=== PATIENT | male | born 1970 | race Caucasian/White ===

== ENCOUNTER → 2020-09-01 12:17 | Outpatient (CLI) | payer OTHER, SELFPAY ==
--- NOTE | ~2020-09-01 | US_ITS ---
EXAMINATION: US scrotum doppler EXAM DATE: 09/01/2020 13:03 INDICATION: Abnormal level of hormones in specimens for male genital org. TECHNIQUE: Multiple grayscale and Doppler images of the testicles and scrotum were obtained bilateral ly. There is no prior study for comparison. FINDINGS: Right testicle measures 4.3 x 2.0 x 3.2 cm and is morphologically normal. Low resistance Doppler te w confirmed. The epididymis is unremarkable. There is no hydrocele or varicocele. Left testicle measures 4.1 x 2.1 x 2.7 cm and is morphologically normal. Low resistance Doppler flow confirmed. The epididymis is unremarkable. There is no hydrocele or varicocele. IMPRESSION: 1. Unremarkable testicular/scrotal ultrasound exam. Reviewed, dictated and finalized at location B. NHOUSE GROWER
--- NOTE | ~2020-09-01 | XR_ITS ---
EXAMINATION: XR chest 2V EXAM DATE: 09/01/2020 12:45 INDICATION: Smoker. TECHNIQUE: Frontal and lateral projections of the thoracic spine as well as lateral swimmers projecti on of the upper thoracic spine for interpretation. There is no prior study for comparison. FINDINGS: Moderate chronic appearing hyperinflation. Right midlung zone granuloma. The lungs are oth erwise clear. There are no pleural effusions. The cardiomediastinal silhouette is within normal diaz its. There is no pneumothorax suspected. The bones and soft tissues are unremarkable. IMPRESSION: 1. No acute cardiopulmonary findings. 2. Hyperinflation. Reviewed, dictated and finalized at location B. D AND ADOLESCENT THERAPIST
== END ==
DX: R86.1 Abnormal level of hormones in specimens from male genital organs (principal); F17.200 Nicotine dependence, unspecified, uncomplicated; D72.825 Bandemia; R91.8 Other nonspecific abnormal finding of lung field
CPT/HCPCS: 71046; 76870; 93976

== ENCOUNTER 2020-09-04 13:43 | Outpatient (CLI) | payer OTHER, SELFPAY | END 2020-09-04 13:44 | disposition home or self-care (01) | LOC: ANHCOVIDVC 13:43 | DX: Z23 Encounter for immunization (principal) | CPT/HCPCS: 0001A; 91300 ==

== ENCOUNTER → 2020-09-10 08:28 | Outpatient (CLI) | payer OTHER, SELFPAY ==
--- NOTE | ~2020-09-10 | US_ITS ---
EXAMINATION: US right upper quadrant DATE: 09/10/2020 08:48 INDICATION: Abnormal levels of hormones in specimens from male genital organs. TECHNIQUE: Multiple grayscale and Doppler ultrasound images of the abdomen were obtained. COMPARISON: None FINDINGS: Abdominal aorta and inferior vena cava are normal. The visualized portions of the head and body of the pancreas are normal. The liver is normal without focal lesion. No liver surface nodularit y. There is normal flow in main portal vein. The gallbladder is normal in size and contains sludge. N o gallstones or gallbladder wall thickening. There was no sonographic Spence sign. The common duct is normal and measures 4 mm. IMPRESSION: 1. Gallbladder sludge. No evidence of acute cholecystitis. Reviewed, dictated and finalized at location A.
== END ==
DX: R86.1 Abnormal level of hormones in specimens from male genital organs (principal); R53.82 Chronic fatigue, unspecified
CPT/HCPCS: 76705

== ENCOUNTER 2020-09-25 11:36 | Outpatient (CLI) | payer OTHER, SELFPAY | END 2020-09-25 11:37 | disposition home or self-care (01) | LOC: ANHCOVIDVC 11:36 | DX: Z23 Encounter for immunization (principal) | CPT/HCPCS: 0002A; 91300 ==

== ENCOUNTER 2021-06-25 13:44 | Emergency (ER) | payer OTHER, SELFPAY ==
[2021-06-25 14:50] VITALS: BP 121/76; PULSE 71; RESP 18; TEMP 37; O2SAT 100
--- NOTE | 2021-06-25 15:18 | ED.URI ---
HPI - URI/Sore Throat General Chief Complaint: Upper Respiratory Infection Stated Complaint: Cough,Congestion,Headache Time Seen by Provider: 06/25/21 15:18 Source: patient and RN notes reviewed Mode of arrival: ambulatory Limitations: no limitations History of Present Illness HPI Narrative: Bismark is a 51-year-old female patient who ambulated into the [facility]. Patient states he had a cough bilateral ear pain and raspy voice for 7 days. Patient has had his Covid vaccine. Patient tested negative for Covid on 06/20/21. Patient has been taking Mucinex at home. Patient had this last year was given albuterol.. Related Data Allergies Allergy/AdvReac Type Severity Reaction Status Date / Time No Known Allergies Allergy Unknown Unverified 01/31/14 17:42 Review of Systems Review of Systems: CONSTITUTIONAL: Denies body aches, fever, chills, or sweats. EYES: Denies visual changes, redness, or discharge. ENT: Denies rhinorrhea,+ congestion, sore throat, + bilateral otalgia. CARDIOVASCULAR: Denies chest pain, palpitations, or edema. RESPIRATORY: +cough denies dyspnea. GASTROINTESTINAL: Denies abdominal pain, nausea, vomiting, or diarrhea. GENITOURINARY: Denies dysuria or hematuria. SKIN: Denies rash, itching, or wounds. MUSCULOSKELETAL: Denies back pain, joint pain, or myalgia. NEUROLOGIC: Denies headache, numbness, tingling, or weakness. PSYCH: Denies depression or anxiety. All systems reviewed & are unremarkable except as noted in HPI and below PMFSH Comments At time of signature, I have reviewed and agree with nursing past medical, surgical, social and family history unless otherwise noted. Please see nursing chart for further information. There is no relevant family history pertinent to the presenting complaint Exam Narrative: GENERAL: Well-appearing, well-nourished, and in no acute distress. HEAD: Normocephalic, atraumatic. EYES: EOMI. No redness or drainage. Conjunctivae normal. ENT: Mucous membranes pink and moist. Nasal passages erythematous with clear rhinorrhea. Bilateral tympanic membranes are opaque with minimal bulging. Posterior pharynx is erythemic with mild postnasal drainage. l. Uvula midline. NECK: Normal AROM. Supple. No lymphadenopathy. CHEST: No respiratory distress. Clear to auscultation decreased in bases MUSCULOSKELETAL: No bony tenderness. EXTREMITIES: Normal range of motion. No edema. SKIN: Warm, dry, no rash. Capillary refill normal. Normal skin turgor. NEURO: No focal deficits. Alert and oriented x3. Gait steady. PSYCH: Normal affect. No signs of depression or anxiety. Course Vital Signs Vital signs: Vital Signs Temperature 37.0 C 06/25/21 14:50 Pulse Rate 71 06/25/21 14:50 Respiratory Rate 18 06/25/21 14:50 Blood Pressure 121/76 06/25/21 14:50 Pulse Oximetry 100 06/25/21 14:50 Temperature 37.0 C 06/25/21 14:50 Pulse Rate 71 06/25/21 14:50 Respiratory Rate 18 06/25/21 14:50 Blood Pressure 121/76 06/25/21 14:50 Pulse Oximetry 100 06/25/21 14:50 MDM - URI/Sore Throat MDM Narrative Medical decision making narrative: Patient has an upper respiratory infection. He will be treated with prednisone and refill on his albuterol inhaler. Patient to follow-up with his primary care physician in 7 to 10 days for continued symptoms or sooner if worse. Differential Diagnosis Differential diagnosis: Likely upper respiratory infection, otitis media, viral infection and influenza Medical Records Attestation: I reviewed the patient's medical records. Critical Care Time Critical Care Time Critical Care Time: No Discharge Plan Discharge Clinical Impression: Upper respiratory infection Qualifiers: URI type: unspecified viral URI Qualified Code(s): J06.9 - Acute upper respiratory infection, unspecified Patient Disposition: Home, Self-Care Condition: Stable Instructions: Antibiotic Form, Upper Respiratory Infection (ED) Additional Instructions
== END 2021-06-25 15:40 | disposition home or self-care (01) ==
PROVIDERS: Emergency Provider Nurse Practitioner Family
DX: J06.9 Acute upper respiratory infection, unspecified (principal); Z86.16 Personal history of COVID-19
CPT/HCPCS: 99213; G0463

== ENCOUNTER 2022-09-24 11:28 | Emergency (ER) | payer OTHER, SELFPAY ==
[2022-09-24 11:46] VITALS: BP 126/81; PULSE 89; RESP 18; TEMP 36.3; O2SAT 100
--- NOTE | 2022-09-24 11:51 | ED.GENADULT ---
HPI - General Adult General Chief complaint: Ear Stated complaint: lt ear discomfort Time Seen by Provider: 09/24/22 11:51 Source: patient Mode of arrival: ambulatory Limitations: no limitations History of Present Illness HPI narrative: 52-year-old male patient presents to the [facility] with complaints of decreased hearing to the right ear for the past week. Patient states he has tried putting some Debrox in to the ear which has not helped. Patient states he has had issues before in the past with having fluid behind his ears and has had to have his ears cleaned out before. Denies any fevers, body aches or chills. Patient states he does take Claritin daily. Related Data Home Medications Medication Instructions Recorded Confirmed No Home Medications 06/25/21 09/24/22 Allergies Allergy/AdvReac Type Severity Reaction Status Date / Time No Known Allergies Allergy Unknown Verified 09/24/22 11:49 Review of Systems Review of Systems: CONSTITUTIONAL: Denies fever, chills, or sweats. EYES: Denies visual changes, redness, or discharge. ENT: Denies rhinorrhea, congestion, sore throat, Positive right otalgia. CARDIOVASCULAR: Denies chest pain, palpitations, or edema. RESPIRATORY: Denies cough or dyspnea. GASTROINTESTINAL: Denies abdominal pain, nausea, vomiting, or diarrhea. GENITOURINARY: Denies dysuria or hematuria. SKIN: Denies rash or itching. MUSCULOSKELETAL: Denies back pain, joint pain, or myalgia. NEUROLOGIC: Denies headache, numbness, or weakness. PSYCHIATRIC: Denies anxiety or depression. [facility] Past Medical History Medical History (Updated 09/24/22 @ 12:43 by JOHN Luo) Cat allergies Seasonal allergies Comments At the time of my signature I agree with nursing past medical history, surgical, social, and family history. There is no relevant family history pertinent to the presenting complaint. Exam Narrative: GENERAL: Well-appearing, well-nourished, and in no acute distress. HEAD: Normocephalic, atraumatic. EYES: PERRLA and EOMI. ENT: Nares clear, no rhinorrhea or epistaxis. Mucous membranes moist. unable to visualize TM in bilateral ears due to cerumen impaction. NECK: Supple. No lymphadenopathy CHEST: Clear to auscultation. No respiratory distress. HEART: Regular rate and rhythm. No murmur heard. Normal peripheral pulses. ABDOMEN: Soft, nontender, nondistended, normal active bowel sounds. EXTREMITIES: Normal range of motion. No edema. SKIN: Warm, dry, no rash. NEURO: No focal deficits. Alert and oriented x3. Course Course Level of Care: Express Care Visit Vital Signs Vital signs: Vital Signs Temperature 36.3 C L 09/24/22 11:46 Pulse Rate 89 09/24/22 11:46 Respiratory Rate 18 09/24/22 11:46 Blood Pressure 126/81 09/24/22 11:46 Pulse Oximetry 100 09/24/22 11:46 Oxygen Delivery Room Air 09/24/22 11:46 Temperature 36.3 C L 09/24/22 11:46 Pulse Rate 89 09/24/22 11:46 Respiratory Rate 18 09/24/22 11:46 Blood Pressure 126/81 09/24/22 11:46 Pulse Oximetry 100 09/24/22 11:46 Oxygen Delivery Room Air 09/24/22 11:46 Vital signs reviewed. Procedures Ear Wax Removal Right Ear: Ear Wax Removal Date: 09/24/22 Ear Wax Removal Time: 12:41 Cerumenolytic Used: Cerumenex and 5-10% Sodium Bicarb solution Results: Re-examined: cerumen removed completely TM Examination: TM(s) intact, normal appearance Ear Canal Exam: atraumatic Patient Tolerated Procedure: well Complications: no problems Technique: ear canal irrigated Medical Decision Making MDM Narrative Medical decision making narrative: Plan care for patient is to use the elephant ear and Debrox to help disimpact the right ear since that is the 1 he is having issues with hearing. I will reassess him once this has resulted Differential Diagnosis Differential Diagnosis: Differential diagnosis: Otitis media, otitis externa, perforated
[2022-09-24] MEDS: CARBAMIDE PEROXIDE 6.5% OT SOLN 15 ML BTL 5 DROP RIGHT EAR (12:06)
== END 2022-09-24 12:46 | disposition home or self-care (01) ==
PROVIDERS: Emergency Provider Nurse Practitioner Family
DX: H61.21 Impacted cerumen, right ear (principal)
CPT/HCPCS: 69209; 99212; A9270; G0463

== ENCOUNTER 2023-05-03 08:28 | Emergency (ER) | payer OTHER, SELFPAY ==
--- NOTE | ~2023-05-03 | XR_ITS ---
EXAMINATION: XR hip RT min 2V DATE: 05/03/2023 09:03 INDICATION: Right hip pain after fall TECHNIQUE: Anteroposterior, frog leg, and cross-table lateral views of right hip were obtained. COMPARISON: None. FINDINGS: Bone alignment is normal. There is no fracture. The soft tissues are unremarkable. IMPRESSION: 1. No acute osseous abnormality. Reviewed, dictated and finalized at location B. R ASSOCIATE
--- NOTE | 2023-05-03 08:38 | ED.LOWEXIN ---
HPI - Extremity Injury (Lower) General Chief Complaint: Extremity Injury, Lower Stated Complaint: fall,rt lower extremity injury Time Seen by Provider: 05/03/23 08:39 Source: patient Mode of arrival: ambulatory Limitations: no limitations History of Present Illness HPI Narrative: Bismark is a 53-year-old male patient presenting to the clinic today with complaints of right hip pain after a fall. He reports over 1 week ago he stepped out of his truck and his foot got caught in the step and he fell back and landed on his back and elbows. He reports he is having pain to the right hip/groin area. States that the pain is worse with walking. Denies any other injury at this time. Rates pain 0 at rest and at times when he is walking it is 04/04 Related Data Home Medications Medication Instructions Recorded Confirmed No Home Medications 06/25/21 05/03/23 Allergies Allergy/AdvReac Type Severity Reaction Status Date / Time No Known Allergies Allergy Unknown Verified 09/24/22 11:49 Review of Systems Review of Systems: Pertinent positives per HPI. Patient denies any fever, chills, rash, headache, visual changes, dizziness, cough, runny nose, sore throat, shortness of breath, chest pain, palpitations, nausea, vomiting, diarrhea, constipation, abdominal pain, or any urinary issues. [facility] Past Medical History Medical History Cat allergies Seasonal allergies Comments At the time of my signature, I reviewed and agree with the nursing past medical, surgical, social, and family history. There is no relevant family history pertinent to the patient complaint. Exam Narrative: General: Well-developed, well nourished, in no apparent distress Head: Normocephalic, atraumatic. Cardio: Regular rate and rhythm, s1 and s2 normal, no murmur appreciated. Resp: Clear to auscultation bilaterally, no rhonchi, rales, wheezing or rubs. Musculoskeletal: No deformity, mild tender to palpation over the right groin musculature, no pain with internal rotation or external rotation of the right hip, no pain with hip flexion, nontender to palpation over the lateral hip, grossly normal range of motion, muscle strength strong and equal, peripheral pulse strong, no edema, no cyanosis, normal gait and station Course Course Emergency Course: Portions of this record may have been created with voice recognition software. Level of Care: Express Care Visit Vital Signs Vital signs: Vital signs reviewed MDM - Extremity Injury (Lower) MDM Narrative Medical decision making narrative: At the time of visit patient is resting comfortably on the exam table. Right hip x-ray was performed Differential Diagnosis Differential diagnosis: Likely other (Hip muscle strain, groin strain, contusion, hip fracture) Discharge Plan Discharge Clinical Impression: Strain of muscle of right groin region Patient Disposition: Home, Self-Care Condition: Stable Instructions: Antibiotic Form, Hip Pain (ED), Groin Strain (ED) Additional Instructions: X-ray of the right hip is negative for any sign of fracture or malalignment. I suspect patient has a right groin strain May take Tylenol/Motrin as needed for pain May apply heat or ice to the affected area Follow up with your PCP in 1 week if symptom persist. Prescriptions: No Action No Home Medications Follow-up/Referrals: PHYSICIAN,PARAOPTOMETRIC [Primary Care Provider] - Time of Disposition: 09:19 Quality NIHSS Nursing Documentation ED NIHSS nursing documentation: reviewed/agree
[2023-05-03 08:39] VITALS: BP 91/71; PULSE 107; RESP 16; TEMP 36.3; O2SAT 100
== END 2023-05-03 09:27 | disposition home or self-care (01) ==
PROVIDERS: Emergency Provider Nurse Practitioner Family
DX: S39.011A Strain of muscle, fascia and tendon of abdomen, initial encounter (principal); V48.4XXA Person boarding or alighting a car injured in noncollision transport accident, initial encounter
CPT/HCPCS: 73502; 99213; G0463

== ENCOUNTER 2024-12-14 14:27 | Emergency (ER) | payer OTHER, SELFPAY ==
--- NOTE | ~2024-12-14 | XR_ITS ---
XR finger 4th LT min 2V Ordering provider: Margarita Balderas APRN History: . hand tire trimmer versus finger, distal . Comparison: None. FINDINGS: BONES: Longitudinal fracture is seen in the distal phalanx of the left fourth finger with comminuted fracture in the tuft. JOINT SPACES: Normal. SOFT TISSUES: Soft tissue swelling over the tuft of the distal phalanx. IMPRESSION: Longitudinal fracture with comminuted fracture in the tuft of the distal phalanx of the left fourth f bonnie. Reviewed, dictated and finalized at location A. IMPRESSION: Longitudinal fracture with comminuted fracture in the tuft of the distal phalan x of the left fourth finger.
--- NOTE | 2024-12-14 14:30 | ED.UPPEXIN ---
HPI - Extremity Injury (Upper) General Chief Complaint: Extremity Injury, Upper Stated Complaint: finger injury Time Seen by Provider: 12/14/24 14:35 Source: patient, RN notes reviewed and old records reviewed Mode of arrival: ambulatory Limitations: no limitations History of Present Illness HPI narrative: 54-year-old male presents to the [facility] with multiple lacerations to the distal aspect 4th finger left hand. Bleedings controlled. 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 hand Unknown last Tdap Related Data Allergies Allergy/AdvReac Type Severity Reaction Status Date / Time No Known Allergies Allergy Unknown Verified 12/14/24 14:36 Review of Systems Review of Systems: All systems reviewed & are unremarkable except as noted in HPI and below Constitutional: Constitutional: Reports no additional constitutional complaints Musculoskeletal: Musculoskeletal: Reports as per HPI Integumentary/Breasts: Skin/Breast: Reports as per HPI PMFSH Past Medical History Medical History Seasonal allergies Cat allergies Comments At the time of my signature, I reviewed and agree with the nursing past medical, surgical, social, and family history. There is no relevant family history pertinent to the patient complaint. Exam Const: General: cooperative, healthy appearing, comfortable, no acute distress, well developed, alert and well nourished Nutritional Appearance: well nourished Orientation/consciousness: patient oriented x3 Limitations: no limitations HENMT: Head: normal to inspection Eyes: General: appearance normal, both eyes and all related structures Alignment and Position: alignment normal Neck: Neck: normal visual inspection, full ROM, no lymphadenopathy and no meningeal signs Chest: Chest palpation & inspection: normal inspection of the chest Resp: Effort & Inspection: normal respiratory effort and able to speak in complete sentences Cardio: Rate: regular rate Skin: General skin exam: normal color and no rashes or lesions noted Wounds: wounds noted laceration left distal 4th finger margins poorly approximated and open Neuro: General: patient oriented x3, gait normal, moves all extremities and no meningeal signs Cognition (Neuro): normal cognition Speech: normal speech Gait exam (Neuro): Normal gait present Extrem: General: normal to inspection, full ROM, capillary refill normal and normal gait Left upper extremity: full ROM, normal capillary refill and hand normal capillary refill, neuromotor exam normal Details: wrist extension normal, thumb opposition normal, thumb IP flexion normal, thumb ADduction normal and fingers 2-5 ABduction normal, vascular exam radial pulse present and normal capillary refill and laceration Other: Three parallel lacerations approximately 1/2 cm in length, 0.5 cm apart. One laceration was a well-approximated. Other to partial avulsion to the palmar aspect Psych: Appearance: grossly normal and well kempt Mental Status: mental status grossly normal Speech and movement: Normal speech and movement present and Clear speech present Affect: normal affect Attitude: cooperative Course Course Level of Care: Express Care Visit Vital Signs Vital signs: Vital Signs Temperature 97.7 F 12/14/24 14:35 Pulse Rate 98 12/14/24 14:35 Respiratory Rate 18 12/14/24 14:35 Blood Pressure 133/78 12/14/24 14:35 Pulse Oximetry 98 12/14/24 14:35 Oxygen Delivery Room Air 12/14/24 14:35 Temperature 97.7 F 12/14/24 14:35 Pulse Rate 98 12/14/24 14:35 Respiratory Rate 18 12/14/24 14:35 Blood Pressure 133/78 12/14/24 14:35 Pulse Oximetry 98 12/14/24 14:35 Oxygen Delivery Room Air 12/14/24 14:35 Reviewed Procedures Laceration Laceration 1: Date: 12/14/24 Time: 15:15 Site: hand (4th finger distal) Side (If applicable): left Description: irregular Depth: simple, single layer Local Anesthetic: lidocaine 1% Amount of anesthesia used (mL): 4 Pre-repair: wound explored and irrigated (500) ====== Skin Level ====== Skin layer closed with: nylon Size (cm): 4-0 Number of sutures: 8 Technique: simple, interrupted ====== Subcutaneous Layer ====== ====== Muscle Layer ====== ====== Tendon Layer ====== Dressing: Area so it with saline and Betadine for approximately 15 minutes. Procedure explained, verbal consent obtained. Base of finger cleaned with Betadine, digital block performed, anesthesia achieved. Wounds flushed with 500 mils of saline. Eight sutures placed to approximate wounds, area left open due to avulsion of skin. MDM - Extremity Injury (Upper) MDM Narrative Medical decision making narrative: Patient presents with multiple lacerations to the tip of the finger, injury from a zipper trimmer hand X-ray shows fracture, covering with antibiotic Wound irrigated well, no contamination noted. Placed sutures for approximation of the wounds, area was left open due to avulsion Of skin patient referred to Dr. Aguilar for further evaluation. Discharge instructions reviewed with patient, as well as provided in writing per nursing staff. The instructions also include specific and strict return/GO TO THE ER as well as f/u information. All questions have been answered, and the patient deny any further questions with discharge and discharge plan. Some parts of this dictation were generated by voice recognition software and may contain typographical and/or grammatical inaccuracies. Differential Diagnosis Differential diagnosis: Likely other (Fracture, laceration) Imaging Data Radiologist's impression: XR finger 4th LT min 2V Ordering provider: Margarita Balderas APRN History: . die trimmer versus finger, distal . Comparison: None. FINDINGS: BONES: Longitudinal fracture is seen in the distal phalanx of the left fourth finger with comminuted fracture in the tuft. JOINT SPACES: Normal. SOFT TISSUES: Soft tissue swelling over the tuft of the distal phalanx. IMPRESSION: Longitudinal fracture with comminuted fracture in the tuft of the distal phalanx of the left fourth finger. Critical Care Time Critical Care Time Critical Care Time: No Discharge Plan Discharge Clinical Impression: Open fracture of tuft of distal phalanx of finger, Vaccine for [id number], combined, Avulsion of skin of finger Patient Disposition: Home Condition: Stable Instructions: Antibiotic Form, Finger Fracture (ED), Finger Laceration (ED) Additional Instructions: Keep area clean and dry. Change dressing 2-3 times per day. Call Dr. Aguilar's office on Monday morning for a follow-up appointment wear the splint until cleared by Dr. Aguilar. May remove to change the dressing. Call make an appointment for Primary. If you are having a hard time finding a physician please call our [facility] liaison at [phone]. Worsening symptoms go directly to the emergency room Patient Language: Sammarinese Prescriptions: New cephalexin 500 mg capsule 500 mg PO QID 10 Days Qty: 40 0RF Follow-up/Referrals: Dell Aguilar MD [Physician] - Ramila Arizmendi NP [Advanced Practice Nurse] - PHYSICIAN,WELDER TECH [Primary Care Provider] - Stand Alone Forms: Work/School Release IP Time of Disposition: 15:58
[2024-12-14 14:35] VITALS: BP 133/78; PULSE 98; RESP 18; TEMP 36.5; O2SAT 98
[2024-12-14] MEDS: TETANUS,DIPHTHERIA,AC PERTUSSIS ADULT (0.5 ML) BOOSTRIX IM (14:44)
[2024-12-14] MEDS: LIDOCAINE 1% LOCAL INJ 2 ML AMPUL 4 ML INFILTRATE (14:46)
== END 2024-12-14 16:03 | disposition home or self-care (01) ==
PROVIDERS: Emergency Provider Nurse Practitioner; Referring Provider Emergency Medicine
DX: S61.215A Laceration without foreign body of left ring finger without damage to nail, initial encounter (principal); Z23 Encounter for immunization; W27.1XXA Contact with garden tool, initial encounter
CPT/HCPCS: 12001; 73140; 90471; 90715; 99214; G0463; J2003

== ENCOUNTER 2024-12-22 08:49 | Emergency (ER) | payer OTHER, SELFPAY ==
[2024-12-22 08:59] VITALS: BP 120/76; PULSE 73; RESP 18; TEMP 36.3; O2SAT 100
--- NOTE | 2024-12-22 09:26 | ED_ITS ---
HPI - Ear Problem General Chief complaint: Ear Stated complaint: LT Ear Problems Source: patient Mode of arrival: ambulatory Limitations: no limitations History of Present Illness HPI Narrative: Patient is a 54-year-old male who presents to the clinic with complaints of left ear pain and muffled hearing x 3 days. He states that he has had cerumen impactions before in bilateral ears. He has been trying Debrox ov [id number], but has had minimal relief. Denies any fevers, nausea, vomiting, or body aches. Related Data Allergies Allergy/AdvReac Type Severity Reaction Status Date / Time No Known Allergies Allergy Unknown Verified 12/22/24 08:52 Review of Systems Review of Systems: CONSTITUTIONAL: Denies malaise, chills, ?or fever. EYES: Denies visual changes, redness, or discharge. ENT: Denies rhinorrhea, congestion, sinus pain, and sore throat. ?Reports left ear pain and muffled hearing. CARDIOVASCULAR: Denies chest pain, palpitations, or edema. RESPIRATORY: Denies cough or dyspnea. GASTROINTESTINAL: Denies abdominal pain, nausea, vomiting, diarrhea SKIN: Denies rash or itching. MUSCULOSKELETAL: Denies myalgia. NEUROLOGIC: Denies headache. All systems reviewed & are unremarkable except as noted in HPI and below PMFSH Past Medical History Medical History Seasonal allergies Cat allergies Social History Social History Smoking status: Never smoker Comments At time of signature, I have reviewed and agree with nursing past medical, surgical, social and family history unless otherwise noted. Please see nursing chart for further information. There is no relevant family history pertinent to the presenting complaint. Exam Narrative: GENERAL: Well-appearing, well-nourished, and in no acute distress. HEAD: Normocephalic EYES: PERRLA, conjunctivae clear ENT: Nares clear. Mucous membranes moist. Left canal with cerumen impaction. Left ear irrigated. After irrigation, left TM with normal light reflex. Right TM with normal light reflex. Bilateral canals not erythematous, no drainage, ?no tragal tenderness. Oropharynx not erythematous without lesions. ?No drooling, no hoarseness, no trismus, uvula midline. NECK: Supple. No lymphadenopathy CHEST: Clear to auscultation, breath sounds equal. No wheezing, rhonchi, rales, or stridor. No respiratory distress, speaks in full sentences. HEART: Regular rate and rhythm. No murmur heard. SKIN: Warm, dry, no rash. NEURO: Alert and oriented x3. PSYCH: Normal mood and affect. Course Course Level of Care: Express Care Visit Vital Signs Vital signs: Vital Signs Temperature 97.3 F L 12/22/24 08:59 Pulse Rate 73 12/22/24 08:59 Respiratory Rate 18 12/22/24 08:59 Blood Pressure 120/76 12/22/24 08:59 Pulse Oximetry 100 12/22/24 08:59 Oxygen Delivery Room Air 12/22/24 08:59 Temperature 97.3 F L 12/22/24 08:59 Pulse Rate 73 12/22/24 08:59 Respiratory Rate 18 12/22/24 08:59 Blood Pressure 120/76 12/22/24 08:59 Pulse Oximetry 100 12/22/24 08:59 Oxygen Delivery Room Air 12/22/24 08:59 Reviewed Procedures Ear Wax Removal Left Ear: Ear Wax Removal Date: 12/22/24 Ear Wax Removal Time: 09:20 Cerumenolytic Used: other ( 1 part water 1 part hydrogen peroxide) Results: Re-examined: cerumen removed completely TM Examination: TM(s) intact, normal appearance Patient Tolerated Procedure: well and no complications Complications: no problems Technique: ear canal irrigated and ear canal curetted Medical Decision Making MDM Narrative Medical decision making narrative: Discussed physical exam findings. Left ear with cerumen impaction. Irrigation completed. Advised supportive measures and signs/symptoms to go to the ER. Pt is appropriate for outpatient treatment and follow up. Differential Diagnosis Differential Diagnosis: Otitis media, otitis externa, cerumen impaction, TM rupture. Vital Signs Vital Signs: Vital Signs Temperature 97.3 F L 12/22/24 08:59 Pulse Rate 73 12/22/24 08:59 Respiratory Rate 18 12/22/24 08:59 Blood Pressure 120/76 12/22/24 08:59 Pulse Oximetry 100 12/22/24 08:59 Oxygen Delivery Room Air 12/22/24 08:59 Temperature 97.3 F L 12/22/24 08:59 Pulse Rate 73 06/29/25 08:59 Respiratory Rate 18 12/22/24 08:59 Blood Pressure 120/76 12/22/24 08:59 Pulse Oximetry 100 12/22/24 08:59 Oxygen Delivery Room Air 12/22/24 08:59 reviewed Critical Care Time Critical Care Time Critical Care Time: No Discharge Plan Discharge Clinical Impression: Cerumen impaction Qualifiers: Laterality: left Qualified Code(s): H61.22 - Impacted cerumen, left ear Patient Disposition: Home Condition: Stable Additional Instructions: Please use earwax softening agent such as [id number] Debrox or a mixture 1 part hydrogen peroxide in 1 part warm water several times weekly to keep your earwax soft and prevent further infection. You may use Tylenol or ibuprofen for pain. Follow up with your primary care provider as needed in 1 week. Go to the ER for worsening symptoms or concerns Patient Language: [place] Citizen Prescriptions: No Action cephalexin 500 mg capsule 500 mg PO QID 10 Days Qty: 40 0RF Follow-up/Referrals: PHYSICIAN,PAINTING SUPERVISOR [Primary Care Provider] - Time of Disposition: 09:28
== END 2024-12-22 09:30 | disposition home or self-care (01) ==
DX: H61.22 Impacted cerumen, left ear (principal)
CPT/HCPCS: 69210; 99212; A9270; G0463

== ENCOUNTER 2024-12-30 08:15 | Outpatient (CLI) | payer OTHER, SELFPAY ==
--- NOTE | ~2024-12-30 | XR_ITS ---
EXAM/ PROCEDURE: XR finger 4th LT min 2V - 12/30/2024 8:30 CDT HISTORY: 54 years old Male with S62.635A - Displaced fracture of distal phalanx of left r... COMPARISON: 12/14/24 TECHNIQUE: Three view(s) FINDINGS/ IMPRESSION: Previously longitudinal fracture is again seen in the distal phalanx of the left fourth finger, gross ly unchanged. .Joint space narrowing, subchondral sclerosis, subchondral cyst formation and osteophyte formation, c ompatible with mild osteoarthritis. Reviewed, dictated and finalized at location A.
--- OUTSIDE RECORDS SUMMARY | 2024-12-30 08:18 | XMS_ITS | Clinical Summary ---
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 Active albuterol sulfate HFA (PROAIR HFA) 108 (90 Base) MCG/ACT inhalerIndicatio ns:Pulmonary emphysema, unspecified emphysema type ([facility]) Inhale 2 puffs into the lungs every 4 (four) hours as needed for Wheezing or Shortness of breath. 18 g 5 Active Active Problems Problem Noted Date Diagnosed Date Cigarette nicotine dependenc e with nicotine-induced disorder 01/20/2021 Pulmonary emphysema, unspeci fied emphysema type ([facility]) 01/20/2021 Abnormal finding on lung imaging 01/20/2021 Multiple lung nodules 01/20/2021 Weight loss 12/18/2020 Overview (12/18/2020): Added automatically from request for surgery [id number] Generalized abdominal pain 12/18/2020 Overview (12/18/2020): Added automatically from request for surgery [id number] Screen for colon cancer 12/18/2020 Overview (12/18/2020): Added automatically from request for surgery [id number] Chronic fatigue 08/20/2020 Reactive depression 08/20/2020 Anxiety 08/20/2020 Resolved Problems Problem Noted Date Diagnosed Date Resolved Date Physical exam 08/20/2020 08/24/2020 Family History Medical History Relation Comments Diabetes Father Hypertension Mother Relation Status Comments Father Mother Social History Tobacco Use Types Packs/Day Years Used Date Smoking Tobacco: Every Day Cigarettes 1 35 Smokeless Tobacco: Never Tobacco Cessation:Ready to Q uit: No; Counseling Given: Yes Alcohol Use Standard Drinks/Week Comments Not Currently 0 (1 standard drink = 0.6 oz pur e alcohol) PHQ-2 Answer Date Recorded PHQ-2 Score - If the patient scores above 3, please move on to questions 3-9 3 08/20/2020 Sex and Gender Information Value Date Recorded Sex Assigned at Not on file 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[employer] Gender Identity Not on file Sexual Orientation Not on file Last Filed Vital Signs Vital Sign Reading Time Taken Comments Blood Pressure 123/79 01/20/2021 1:09 PM CDT Pulse 85 01/20/2021 1:09 PM CDT Temperature 36.7 C (98.1 F) 01/20/2021 1:09 PM CDT Respiratory Rate 16 01/20/2021 1:09 PM CDT Oxygen Saturation 98% 01/20/2021 1:09 PM CDT ra Inhaled Oxygen Concentration - - Weight 60.3 kg (133 lb) 01/20/2021 1:09 PM CDT Height 172.7 cm (5' 8) 01/20/2021 1:09 PM CDT Body Mass Index 20.22 01/20/2021 1:09 PM CDT Plan of Treatment Health Maintenance Due Date Last Done Comments Hepatitis C 1988 DTaP, Tdap and Td Vaccines ( 1 - Tdap) 1989 Hepatitis B Vaccines (1 of 3 - 19+ 3-dose series) 1989 Pneumococcal Vaccine: 50+ Years (1 of 2 - PCV) 1989 Zoster Vaccines (1 of 2) 2020 Annual Physical 08/20/2021 08/20/2020 COVID-19 Vaccine (3 - 2023-2 5 season) 2024 09/25/2020, 09/04/2020 Colorectal Cancer Screening Colonoscopy (10 Years) 01/01/2031 01/01/2021 Meningococcal B Vaccine Aged Out No l onger eligible based on patient's age to complete this topic Meningococcal Vaccine Aged Out No leighton malka eligible based on patient's age to complete this topic RSV Immunizations Under 20 Months Aged Out No longer eligible b ased on patient's age to complete this topic Insurance [employer] Care Teams Auto Garage Attendant Relationship Specialty Start Date End Date Robert Ibarra MD PCP - General [facility] 08/20/20
== END 2024-12-30 08:16 | disposition home or self-care (01) ==
PROVIDERS: Visit Provider Plastic Surgery
DX: S62.635D Displaced fracture of distal phalanx of left ring finger, subsequent encounter for fracture with routine healing (principal); X58.XXXD Exposure to other specified factors, subsequent encounter
CPT/HCPCS: 73140